=== PATIENT | female | born 1950 | race African-American/Black ===

== ENCOUNTER 2020-08-13 18:23 | Emergency (ER) | payer MEDICARE, OTHER ==
[~2020-08-13] VITALS: Ht 152.4 cm; Wt 81.0 kg
[2020-08-13] MEDS ORDERED: MORPHINE SULFATE 4 MG/ML CPJ (NOT FOR IM USE) IV ONE (21:15)
[2020-08-13 22:24] VITALS: BP 141/75
[2020-08-13] MEDS ORDERED: HYDR-4346 MT (23:17)
== END 2020-08-13 23:37 | disposition home or self-care (01) ==
LOC: ER 18:23
DX: S42.301A Unspecified fracture of shaft of humerus, right arm, initial encounter for closed fracture (principal); E78.00 Pure hypercholesterolemia, unspecified; I10 Essential (primary) hypertension; Z88.8 Allergy status to other drugs, medicaments and biological substances; Z79.899 Other long term (current) drug therapy; Z98.890 Other specified postprocedural states; W01.0XXA Fall on same level from slipping, tripping and stumbling without subsequent striking against object, initial encounter; Y93.89 Activity, other specified; Y92.89 Other specified places as the place of occurrence of the external cause; Y99.8 Other external cause status
CPT/HCPCS: 29105; 73060; 73080; 73090; 73100; 96374; 99284; J2270; A4565